=== PATIENT | male | born 1950 | race Caucasian/White ===

== ENCOUNTER → 2024-06-24 12:15 | Outpatient (REF) | payer MEDICARE, SELFPAY | LOC: DHSLP 12:15 | PROVIDERS: ATTENDING PHYSICIAN Internal Medicine Critical Care Medicine; FAMILY PHYSICIAN Family Medicine | DX: G47.33 Obstructive sleep apnea (adult) (pediatric) (principal) | CPT/HCPCS: 95800 ==

== ENCOUNTER → 2024-07-02 07:42 | Outpatient (REF) | payer MEDICARE, SELFPAY | LOC: EMG 07:42 | PROVIDERS: ATTENDING PHYSICIAN Orthopaedic Surgery; FAMILY PHYSICIAN Family Medicine | DX: R20.0 Anesthesia of skin (principal) | CPT/HCPCS: 95886; 95911 ==

== ENCOUNTER → 2024-07-30 13:50 | Outpatient (REF) | payer MEDICARE, SELFPAY | LOC: HWRCS 13:50 | PROVIDERS: ATTENDING PHYSICIAN Nurse Practitioner; FAMILY PHYSICIAN Family Medicine | DX: R07.9 Chest pain, unspecified (principal) | CPT/HCPCS: 93306 ==

== ENCOUNTER 2024-12-29 15:27 | Emergency (ER) | payer MEDICARE, SELFPAY ==
[2024-12-29 15:31] VITALS: BP 128/66
[2024-12-29 16:00] LABS: % Basophils 0.9 % (0-2); % Eosinophils 2.2 % (0-6); % Immature Granulocytes 0.3 % (0-0.5); % Lymphocytes 19.7 % (20.5-51.1); % Monocytes 10.5 % (1.7-9.3); % Neutrophils 66.4 % (42.2-75.2); Absolute Basophils 0.1 10^3/uL (0-0.2); Absolute Eosinophils 0.2 10^3/uL (0-0.7); Absolute Lymphocytes 1.7 10^3/uL (1.2-3.4); Absolute Monocytes 0.9 10^3/uL (0.1-0.6); Absolute Neutrophils 5.8 10^3/uL (1.4-6.5); Hematocrit 44.5 % (39.0-52.0); Hemoglobin 15.2 g/dL (13.0-18.0); Mean Corp Hgb Conc. 34.2 g/dL (33.0-37.0); Mean Corpuscular Hgb 30.3 pg (27.0-31.0); Mean Corpuscular Volume 88.8 fL (80.0-94.0); Nucleated Red Blood Cells % 0 % (-); Platelet Count 220 10^3/uL (130-400); Red Blood Cell Count 5.01 10^6/uL (4.70-6.10); Red Cell Dist. Width 12.7 % (11.5-14.5); White Blood Cell Count 8.8 10^3/uL (4.8-10.8)
[2024-12-29 16:14] LABS: ALT (SGPT) 24 U/L (0-50); AST (SGOT) 25 U/L (17-59); Albumin 4.2 g/dl (3.5-5.0); Alkaline Phosphatase 81 U/L (38-126); Blood Urea Nitrogen 13 mg/dl (9-20); Calcium 9.7 mg/dl (8.4-10.2); Carbon Dioxide 26 mmol/L (22-30); Chloride 107 mmol/L (98-107); Glucose 100 mg/dl (70-99); Potassium 4.4 mmol/L (3.5-5.1); Sodium 142 mmol/L (135-145); Total Bilirubin 0.6 mg/dl (0.2-1.3); Total Protein 7.3 g/dl (6.3-8.2); eGFR > 60.00
[2024-12-29 16:25] LABS: Troponin I < 0.012 ng/ml
--- NOTE | 2024-12-29 19:16 | ED.GENMED ---
History of Present Illness
General
Chief Complaint: Chest Pain
Source: patient and spouse
Time Seen by Provider: 12/29/24 18:40
History of Present Illness
History of Present Illness:
74-year-old male with past medical history of hypertension hyperlipidemia presenting to the emergency department for evaluation of rapidly fleeting left anterior chest wall discomfort describes lasting only a second or 2 and then resolving but has
been occurring and increased frequency over the last 2 to 3 days. There are no other associated symptoms with this including shortness of breath, cough, pleurisy, hemoptysis, exertional dyspnea, orthopnea, PND or any other concerns. Patient states
he does believe he has had a stress test in the past but cannot remember as to how long ago the stress test was. Denies any recent travel or recent illnesses. Has not attempted anything for the pain as the pain comes on quickly and then resolves
just as fast.
Past History
Past History
ED Past Medical History: HTN and Hypercholesterolemia
ED Past Surgical History: Orthopedic
Social History
Tobacco: Non-smoker
Alcohol: None
Drug: None
Personal:
Living: with family
Employment: Retired
Family History
Family History: Negative Early CAD
Review of Systems
Review of Systems
All Other Systems: ROS reviewed and negative except as documented in HPI and ROS
Phy Exam
Physical Exam
Physical Exam:
GENERAL: Alert , in no apparent distress
EYE: conjunctiva clear
NECK: Supple, no significant adenopathy.
ENT: o/p clr, mmm.
CARDIAC: Regular rate and rhythm, no murmur
LUNGS: Clear breath sounds bilaterally, no acute respiratory distress, no wheezes/rales/rhonchi, reproducible anterior chest wall tenderness just inferior to the left nipple
NEUROLOGICAL: Alert and oriented
SKIN: Warm and dry, skin intact. No rashes
MUSCULOSKELETAL: well perfused.
PSYCH: Normal and appropriate interaction.
Scores
Heart Failure Risk
Heart Failure Risk Score: Not Applicable
Heart Score for Chest Pain Patients
STEMI patient?: No
History: Slightly or Non-Suspicious
ECG: Normal
Age: >/= 65 years
Risk Factors: 1 or 2 Risk Factors
Troponin: </= Normal Limit
Heart Score for Chest Pain Patients: 3
Heart Score Risk: 2.5% MACE over next 6 weeks
Withdrawal Assessment of Alcohol
Withdrawal Assessment Completed?: Not applicable
Course
Orders/Labs/Results
Orders:
Orders
12/29/24 15:29
Electrocardiogram (*1) Urgent
Reason for Study: Chest Pain
EKG- Treatment ONCE
12/29/24 15:40
Complete Blood Count/With Diff Urgent
12/29/24 15:41
Comprehensive Metabolic Panel Urgent
Troponin I Urgent
12/29/24 19:05
Electrocardiogram (*1) Urgent
Reason for Study: Chest Pain
EKG- Treatment ONCE
12/29/24 19:06
Troponin I Urgent
CR Chest - 2 Views Urgent
Comment:
Reason For Exam: left anterior chest discomfort
Abnormal Lab Results
12/29/24 12/29/24
15:40 15:41
Absolute Monos (auto) 0.9 H 10^3/uL
(0.1-0.6)
Lymphocytes % 19.7 L %
(20.5-51.1)
Monocytes % 10.5 H %
(1.7-9.3)
Glucose 100 H mg/dl
(70-99)
12/29/24 15:40
12/29/24 15:41
Vital Signs
Initial and Last Documented VS:
Initial Vital Signs
Temp Pulse Resp BP Pulse Ox
98.4 F 61 16 128/66 96
12/29/24 15:31 12/29/24 15:31 12/29/24 15:31 12/29/24 15:31 12/29/24 15:31
Last Documented Vital Signs
Temp Pulse Resp BP Pulse Ox
98.4 F 77 23 134/78 97
12/29/24 15:31 12/29/24 20:00 12/29/24 20:00 12/29/24 20:00 12/29/24 19:45
MDM/Problems Addressed
Differential Diagnosis Includes:
Musculoskeletal chest wall pain, cardiac dysrhythmia/arrhythmia, valvular dysfunction, PE, pneumothorax, pleurisy less concern for ACS
MDM/Problems Addressed:
74-year-old male presenting to the ER for evaluation of left anterior chest wall discomfort that has been ongoing for the last 2 to 3 days, somewhat increasing in frequency but not intensity. Not exacerbated by position nor exercise. Patient does
have reproducible tenderness on my exam. I suspect muscular etiology is most likely. Initial set of labs ordered in triage are unremarkable. EKG does show sinus bradycardia with PACs. Will repeat troponin with likely disposition home with chest
pain hotline follow-up
*Radiology
Radiology exam reviewed: preliminary read by ED provider (Normal chest x-ray)
*Pulse Oximetry
Patient hypoxic: no
*EKG
Interpreted by ED Provider?: Yes
Heart Rate: 59
Rate: bradycardiac
Rhythm: sinus and PAC's
[place]: normal axis
Ischemia: no ischemia
*Gym Attendant Interpretation
Rate: bradycardiac
Rhythm: sinus
*Critical Care Note
Total Time (30-74mins, 75-104mins- exclusive of procedures): Not Applicable
Data Reviewed
Review of Other/Old Records Reveals: Testing
Comment
Comment:
Stress echo done in November 2020 shows a normal stress echocardiogram with normal hemodynamic response to exercise
Patient Management
Escalation/DeEscalation of care consider admission/obs:
Repeat troponin and EKG remain nonischemic. Patient pain-free. At this time he is stable for discharge home. Chest pain hotline notified. Aware of return precautions. Stable for discharge home
ED Attending Note
-
Portions of this chart may have been created with voice recognition software.� Occasional wrong word or��sound alike� substitutions may have occurred due to the inherent limitations of voice recognition software.
Discharge Plan
Departure
Patient Disposition: Home (Routine Discharge)
Date of Disposition: 12/29/24
Time of Disposition: 20:04
Patient with high blood pressure during this ER visit?: No
Discharge Problem:
Chest pain, Atrial contractions, premature
Instructions: Chest Pain DCA Follow Up
Interventions
Interventions:
*Risk Screen - Suicide Last Done: 12/29/24 19:10
*General Assessment Last Done: 12/29/24 19:10
*Neglect/Abuse Screening Last Done: 12/29/24 19:10
*ED- Fall Risk Assessment Last Done: 12/29/24 19:10
*ED COVID-19 Vaccine History Last Done: 12/29/24 19:10
*Nursing Disposition Last Done: 12/29/24 20:38
ED- Cardiac Assessment Last Done: 12/29/24 19:15
Discharge Date and Time
Print Language: [id number]
[2024-12-29 19:21] VITALS: BP 138/67
[2024-12-29 19:30] VITALS: BP 123/75
[2024-12-29 19:47] LABS: Troponin I < 0.012 ng/ml
[2024-12-29 20:00] VITALS: BP 134/78
== END 2024-12-29 20:38 | disposition home or self-care (01) ==
LOC: EMR 15:27
PROVIDERS: Emergency Medicine; Physician Assistant Medical; EMERGENCY PHYSICIAN Emergency Medicine
DX: R07.89 Other chest pain (principal); I49.1 Atrial premature depolarization; I10 Essential (primary) hypertension; E78.00 Pure hypercholesterolemia, unspecified; Z88.8 Allergy status to other drugs, medicaments and biological substances
CPT/HCPCS: 99284; 71046; 80053; 84484; 85025; 93005

== ENCOUNTER → 2025-01-05 07:25 | Outpatient (REF) | payer MEDICARE, SELFPAY | LOC: HWRCS 07:25 | PROVIDERS: ATTENDING PHYSICIAN Physician Assistant Medical; FAMILY PHYSICIAN Family Medicine | DX: R07.89 Other chest pain (principal) | CPT/HCPCS: 78452; 93017; A9500; J2785 ==